=== PATIENT | female | born 1955 | race Caucasian/White ===

== ENCOUNTER → 2017-07-13 | Outpatient (CLI) | payer OTHER | LOC: CFH 11:37 | PROVIDERS: ATTEND Family Medicine | DX: Z12.31 Encounter for screening mammogram for malignant neoplasm of breast (principal) | CPT/HCPCS: 77067 ==

== ENCOUNTER → 2018-07-24 | Outpatient (CLI) | payer OTHER | END | disposition home or self-care (01) | LOC: CFH 12:06 | PROVIDERS: ATTEND Family Medicine | DX: Z12.31 Encounter for screening mammogram for malignant neoplasm of breast (principal) | CPT/HCPCS: 77063; 77067 ==

== ENCOUNTER 2018-08-28 06:03 | Day surgery (SDC) | payer OTHER ==
[2018-08-27 11:37] LABS: BASOPHILS # (AUTO) 0.03 x10^3/uL (0-0.1); BASOPHILS % (AUTO) 1 % (0-1); EOSINOPHILS # (AUTO) 0.04 x10^3/uL (0-0.4); EOSINOPHILS % (AUTO) 1 % (1-7); LYMPHOCYTES # (AUTO) 1.63 x10^3/uL (1-3.4); LYMPHOCYTES % (AUTO) 27 % (22-44); MD NO; MEAN CORPUSCULAR HEMOGLOBIN 32.4 pg (27.0-34.8); MEAN CORPUSCULAR HGB CONC 33.4 g/dL (32.4-35.8); MEAN PLATELET VOLUME 7.8 fL (7.4-10.4); MONOCYTES # (AUTO) 0.66 x10^3/uL (0.2-0.8); MONOCYTES % (AUTO) 11 % (2-9); NEUTROPHILS # (AUTO) 3.73 x10^3/uL (1.8-6.8); NEUTROPHILS % (AUTO) 61 % (42-75); PLATELET COUNT 263 x10^3/uL (130-400); RED BLOOD COUNT 4.59 x10^6/uL (3.82-5.3); RED CELL DISTRIBUTION WIDTH 13.9 % (9.6-15.2)
[~2018-08-28] VITALS: Ht 174 cm; Wt 75.6 kg
[~2018-08-28 06:03] MED LIST: ATOR20TA37 PO; PRAS6.5I RC
[2018-08-28] MEDS ORDERED: LACTATED RINGERS 1,000 ML IV SCH (06:44)
[2018-08-28] MEDS ORDERED: BUPIVACAINE LIPOSOME/PF 10ML INFIL ONE (07:02)
[2018-08-28] MEDS ORDERED: MIDAZOLAM 1 MG/ML, 2ML ONE (07:37)
[2018-08-28] MEDS ORDERED: LIDOCAINE-MPF 2% ,5ML ONE (07:38)
[2018-08-28] MEDS ORDERED: ROCURONIUM 10MG/ML,5ML ONE (07:38)
[2018-08-28] MEDS ORDERED: FENTANYL PF 100 MCG/2ML ONE (07:38)
[2018-08-28] MEDS ORDERED: SUCCINYLCHOLINE 20 MG/ML, 10ML ONE (07:38)
[2018-08-28] MEDS ORDERED: PROPOFOL 10 MG/ML, 20ML ONE (07:38)
[2018-08-28] MEDS ORDERED: ONDANSETRON 2MG/ML, 2ML ONE (08:05)
[2018-08-28] MEDS ORDERED: KETOROLAC 30 MG/1 ML ONE (08:05)
[2018-08-28] MEDS ORDERED: DEXAMETHASONE 4 MG/ML, 1ML ONE (08:05)
[2018-08-28] MEDS ORDERED: BUPIVACAINE/PF 0.5% ONE (08:25)
[2018-08-28] MEDS ORDERED: ACETAMINOPHEN 650 MG/20.3 ML UDC ONE ×2 (09:00)
[2018-08-28] MEDS ORDERED: MEPERIDINE/PF 25MG/0.5ML IVPush PRN (09:00)
[2018-08-28] MEDS ORDERED: LORazepam 2 MG/ML, 1ML IVPush PRN (09:00)
[2018-08-28] MEDS ORDERED: hydrALAzine 20 MG/ML, 1ML IV PRN (09:00)
[2018-08-28] MEDS ORDERED: HYDROmorphone 2 MG/ML, 1ML IVPush PRN (09:00)
[2018-08-28] MEDS ORDERED: ACETAMINOPHEN 325 MG TABLET PO PRN (09:00)
[2018-08-28] MEDS ORDERED: LABETALOL 5MG/ML, 20ML IV PRN (09:00)
[2018-08-28] MEDS ORDERED: FENTANYL PF 100 MCG/2ML IV PRN (09:00)
[2018-08-28] MEDS ORDERED: OXYcodone 5 MG/5 ML ORAL.SOL UDC PO PRN (09:00)
== END 2018-08-28 10:05 | disposition home or self-care (01) ==
LOC: OUT 06:03
PROVIDERS: ATTEND Surgery
DX: A63.0 Anogenital (venereal) warts (principal); K64.4 Residual hemorrhoidal skin tags; G47.33 Obstructive sleep apnea (adult) (pediatric); E78.5 Hyperlipidemia, unspecified; Z79.899 Other long term (current) drug therapy
CPT/HCPCS: 36415; 46910; 85025; 87806; 88305; 93005; J0330; J1100; J1885; J2250; J2405; J2704; J3010; J7120; G0475

== ENCOUNTER 2018-09-21 14:57 | Inpatient (IN) | payer OTHER ==
[~2018-09-21] VITALS: Ht 175.3 cm; Wt 78.5 kg
[2018-09-21] MEDS ORDERED: MORPHINE SULFATE 4 MG/ML, 1ML ONE (15:25)
[2018-09-21] MEDS ORDERED: ONDANSETRON 2MG/ML, 2ML ONE ×2 (15:25→17:17)
[2018-09-21] MEDS ORDERED: ONDANSETRON 2MG/ML, 2ML IVPush ONE (15:30)
[2018-09-21] MEDS ORDERED: MORPHINE SULFATE 4 MG/ML, 1ML IVPush PRN (15:30)
[2018-09-21] MEDS ORDERED: SODIUM CHLORIDE FLUSH 10ML SYR IVF ONE (15:30)
[2018-09-21 15:37] LABS: MEAN CORPUSCULAR HGB CONC 33.1 g/dL (32.4-35.8); MEAN CORPUSCULAR VOLUME 93.4 fL (80-100); MEAN PLATELET VOLUME 7.2 fL (7.4-10.4); PLATELET COUNT 431 x10^3/uL (130-400); RED BLOOD COUNT 4.22 x10^6/uL (3.82-5.3); RED CELL DISTRIBUTION WIDTH 13.2 % (9.6-15.2)
--- NOTE | 2018-09-21 15:40 | NUR ---
pt to [place]
[2018-09-21 15:42] LABS: ALANINE AMINOTRANSFERASE 18 U/L (12-78); ALBUMIN 3.4 g/dL (3.4-5.0); ANION GAP 11 mmol/L (5-15); CALCIUM 10.3 mg/dL (8.5-10.1); CHLORIDE 106 mmol/L (98-107)
[2018-09-21 15:45] LABS: ALKALINE PHOSPHATASE 92 U/L (45-117); BILIRUBIN,TOTAL 0.4 mg/dL (0.2-1.0); TOTAL PROTEIN 8.3 g/dL (6.4-8.2)
[2018-09-21 16:25] LABS: BASOPHILS # (AUTO) 0.06 x10^3/uL (0-0.1); BASOPHILS % (AUTO) 0 % (0-1); EOSINOPHILS # (AUTO) 0.13 x10^3/uL (0-0.4); EOSINOPHILS % (AUTO) 1 % (1-7); LYMPHOCYTES # (AUTO) 1.03 x10^3/uL (1-3.4); LYMPHOCYTES % (AUTO) 6 % (22-44); MD SCAN; MONOCYTES % (AUTO) 8 % (2-9); NEUTROPHILS % (AUTO) 85 % (42-75)
--- NOTE | 2018-09-21 16:46 | NUR ---
report to shilpa mejia
[2018-09-21] MEDS ORDERED: AMPICILLIN/SULBACTAM 3 GM in SODIUM CHLORIDE 0.9% 100 ML IV ONE (17:00)
[2018-09-21] MEDS ORDERED: MIDAZOLAM 1 MG/ML, 2ML ONE (17:02)
[2018-09-21] MEDS ORDERED: FENTANYL PF 100 MCG/2ML ONE ×2 (17:02→18:00)
[2018-09-21] MEDS ORDERED: SUCCINYLCHOLINE 20 MG/ML, 10ML ONE (17:17)
[2018-09-21] MEDS ORDERED: DEXAMETHASONE 4 MG/ML, 1ML ONE (17:17)
[2018-09-21] MEDS ORDERED: PROPOFOL 10 MG/ML, 20ML ONE (17:17)
[2018-09-21] MEDS ORDERED: METOCLOPRAMIDE 5 MG/ML, 2ML IV PRN (18:00)
[2018-09-21] MEDS ORDERED: OXYcodone 5 MG/5 ML ORAL.SOL UDC PO PRN (18:00)
[2018-09-21] MEDS ORDERED: HYDROmorphone 2 MG/ML, 1ML IVPush PRN (18:00)
[2018-09-21] MEDS ORDERED: KETOROLAC 30 MG/1 ML IV PRN (18:00)
[2018-09-21] MEDS ORDERED: LORazepam 2 MG/ML, 1ML IVPush PRN (18:00)
[2018-09-21] MEDS ORDERED: MEPERIDINE/PF 25MG/0.5ML IVPush PRN (18:00)
[2018-09-21] MEDS ORDERED: ACETAMINOPHEN 325 MG TABLET PO PRN (18:00)
[2018-09-21] MEDS ORDERED: ONDANSETRON 2MG/ML, 2ML IV PRN ×2 (18:00→19:00)
[2018-09-21] MEDS ORDERED: OXYcodone 5 MG/5 ML ORAL.SOL UDC ONE (18:01)
[2018-09-21] MEDS: FENTANYL PF 100 MCG/2ML IV PRN ×3 (18:06→18:20)
[2018-09-21] MEDS ORDERED: LORazepam 2 MG/ML, 1ML IV PRN (19:00)
[2018-09-21] MEDS ORDERED: DIPHENHYDRAMINE 50 MG/ML, 1ML IV PRN (19:00)
[2018-09-21] MEDS ORDERED: DIPHENHYDRAMINE 25 MG CAPSULE PO PRN (19:00)
[2018-09-21] MEDS ORDERED: ACETAMINOPHEN 500 MG TABLET PO SCH (19:00)
[2018-09-21] MEDS ORDERED: hydrALAzine 20 MG/ML, 1ML IV PRN (19:00)
[2018-09-21] MEDS ORDERED: LORazepam 1MG TABLET PO PRN (19:00)
[2018-09-21] MEDS ORDERED: DO NOT STOP ANTIBIOTICS AFTER 24HRS MC SCH (19:00)
[2018-09-21] MEDS ORDERED: POTASSIUM CHLORIDE 20 MEQ in D5%-0.45% NACL 1,000 ML IV SCH (19:00)
[2018-09-21] MEDS ORDERED: ENALAPRILAT 1.25 MG/ML, 2ML IV PRN (19:00)
[2018-09-21] MEDS: METRONIDAZOLE PMX 500MG/100ML 100 ML IVPB SCH (20:04)
[2018-09-21] MEDS: ACETAMINOPHEN 500 MG TABLET PO SCH (20:04)
[2018-09-21] MEDS: VANCOMYCIN PMX 1GM/200ML 200 ML IVPB SCH (21:46)
[2018-09-21] MEDS: OXYcodone 5 MG/5 ML ORAL.SOL UDC PO PRN (22:02)
[2018-09-22] VITALS (7 sets, daily range): BP systolic 81–101; BP diastolic 36–68
[2018-09-22] MEDS: ACETAMINOPHEN 500 MG TABLET PO SCH ×3 (02:07→14:16)
[2018-09-22] MEDS: METRONIDAZOLE PMX 500MG/100ML 100 ML IVPB SCH (04:10)
[2018-09-22 05:25] LABS: BASOPHILS % (AUTO) 0 % (0-1); EOSINOPHILS # (AUTO) 0.19 x10^3/uL (0-0.4); EOSINOPHILS % (AUTO) 1 % (1-7); LYMPHOCYTES % (AUTO) 6 % (22-44); MD NO; MEAN CORPUSCULAR HEMOGLOBIN 31.5 pg (27.0-34.8); MEAN CORPUSCULAR HGB CONC 33.3 g/dL (32.4-35.8); MEAN CORPUSCULAR VOLUME 94.6 fL (80-100); MEAN PLATELET VOLUME 7.2 fL (7.4-10.4); MONOCYTES # (AUTO) 0.54 x10^3/uL (0.2-0.8); MONOCYTES % (AUTO) 3 % (2-9); NEUTROPHILS # (AUTO) 14.67 x10^3/uL (1.8-6.8); NEUTROPHILS % (AUTO) 90 % (42-75); PLATELET COUNT 425 x10^3/uL (130-400); RED BLOOD COUNT 3.72 x10^6/uL (3.82-5.3); RED CELL DISTRIBUTION WIDTH 13.4 % (9.6-15.2)
[2018-09-22 05:39] LABS: ALBUMIN 2.8 g/dL (3.4-5.0); ANION GAP 7 mmol/L (5-15); CALCIUM 9.7 mg/dL (8.5-10.1); CHLORIDE 107 mmol/L (98-107)
[2018-09-22] MEDS: VANCOMYCIN PMX 1GM/200ML 200 ML IVPB SCH (07:57)
[2018-09-22] MEDS: ENOXAPARIN 40 MG/0.4 ML SQ SCH (07:57)
[2018-09-22] MEDS: AMOXICILLIN/CLAV 875-125MG TABLET PO SCH ×3 (12:23→20:46)
[2018-09-22] MEDS: OXYcodone 5 MG/5 ML ORAL.SOL UDC PO PRN (19:07)
[2018-09-22] MEDS: KETOROLAC 30 MG/1 ML IV PRN (23:02)
[2018-09-23 01:47] VITALS: BP 112/68
[2018-09-23 07:13] VITALS: BP 129/77
[2018-09-23] MEDS: KETOROLAC 30 MG/1 ML IV PRN ×2 (07:19→13:24)
[2018-09-23] MEDS: ENOXAPARIN 40 MG/0.4 ML SQ SCH (08:34)
[2018-09-23] MEDS: AMOXICILLIN/CLAV 875-125MG TABLET PO SCH ×2 (08:34→17:27)
[2018-09-23 13:11] VITALS: BP 132/75
[2018-09-23] MEDS ORDERED: KETO10TA PO (17:47)
[2018-09-23] MEDS ORDERED: SULF1TAB24 PO (17:47)
[2018-09-23 18:11] VITALS: BP 125/72
== END 2018-09-23 18:00 | disposition home or self-care (01) | DRG 346 ==
LOC: ED 16:27 → SUATTDRO 17:13 → EDIP 17:16 → 4NOR 18:44
PROVIDERS: ADMIT Surgery; ATTEND Surgery
PROC: 0D9P0ZZ Drainage of Rectum, Open Approach (ICD-10-PCS; principal; 2018-09-21 17:00)
DX: K61.1 Rectal abscess (principal); D72.829 Elevated white blood cell count, unspecified; E78.00 Pure hypercholesterolemia, unspecified; E78.5 Hyperlipidemia, unspecified; Z83.6 Family history of other diseases of the respiratory system
CPT/HCPCS: 36415; 72193; 80048; 80053; 82040; 83605; 85025; 87040; 87070; 87075; 87077; 87102; 87186; 87205; 96365; 96375; G0378; J0295; J1100; J1650; J1885; J2250; J2405; J2704; J3010; J3370; J3480; J0330; J2270

== ENCOUNTER → 2019-08-19 | Outpatient (CLI) | payer BC ==
[~2019-08-19] MED LIST changes: +KETO10TA PO; +SULF1TAB24 PO
== END | disposition home or self-care (01) ==
LOC: CFH 08:50
PROVIDERS: ATTEND Obstetrics & Gynecology Gynecology
DX: Z12.31 Encounter for screening mammogram for malignant neoplasm of breast (principal); Z13.820 Encounter for screening for osteoporosis; M81.0 Age-related osteoporosis without current pathological fracture
CPT/HCPCS: 77063; 77067; 77080